=== PATIENT | female | born 1965 | race Caucasian/White ===

== ENCOUNTER → 2018-11-07 12:49 | Outpatient (CLI) | payer OTHER, SELFPAY ==
--- NOTE | 2018-11-07 | ASPS_PTH ---
PATIENT: SERGE NAIR LOC: [facility] U#:[id number] AGE/SX: 60/F ROOM: RE11/07/[address]: Dr. Ken Woodward MD : 1965 BED: DIS: SPEC #: [id number] RECD: 11/07/18 13:28 STATUS: OSEI ELIJAH #: [id number] RITU: 11/07/18 00:[address]: Ken Woodward DEPT: CYTOLOGY RECD BY: Ulises Viera Tissues: Left breast, NOS Procedures: Pap Stain (control) Special Stain Group II Cytology Other HEADER OPERATION: Left breast cyst aspiration PRE-OP DIAGNOSIS: Abnormal mammogram TISSUE SUBMITTED: Left breast tissue 4 slides DIAGNOSIS CYTOLOGY Left breast cyst aspiration, FNA (smears): Consistent with cyst contents. See cytology study and comment. SJ:lori 11/10/18 COMMENT Correlation with clinical, radiologic findings and appropriate follow up are necessary. Rebiopsy is suggested if clinically indicated. CYTOLOGY STUDY Slides are reviewed. The specimen is paucicellular and consists of macrophages and amorphous acellular material. Ductal cells are not identified. CYTOLOGY GROSS Received are four smears labeled with the patient's name and designated per the requisition as left breast. Submitted for staining. 11/07/18 TC:5 CPT: 89032
== END ==
PROVIDERS: Referring Provider Surgery; Visit Provider Surgery
DX: R92.8 Other abnormal and inconclusive findings on diagnostic imaging of breast (principal)
CPT/HCPCS: 88161; 88313

== ENCOUNTER 2022-05-24 09:44 | Outpatient (RCR) | payer OTHER, SELFPAY ==
[2022-05-24 10:17] VITALS: BP 131/81; PULSE 83; RESP 16; TEMP 36.9; BMI 28.6
--- NOTE | 2022-05-24 14:14 | HP.PCM_ITS ---
History of Present Illness Date of Service: 05/24/22 Chief Complaint: Right Leg Wound History of Wound: Ms. Palm is a 56 who presents to the wound center due to non healing right leg wound. Sustained wound about a month ago when she fell on some rocks. Was seen by an Orthopedic PA and Doc. Has been doing Epsom salt socks and some other wound care measures but per patient, she is slowly healing. No history of Diabetes. Smokes occasionally, typically when she drinks. She denies chills, fever or otherwise feeling of unwell. [facility] Medical History (Updated 05/24/22 @ 18:[address] Minerva Queen MD) Tobacco abuse Traumatic open wound of left lower leg with delayed healing Home Medications antiarthritic combination no.2 900 mg tablet (glucosamine-chondroitin) 900 mg PO DAILY 11/05/13 [History Last Taken Unknown] aspirin 81 mg chewable tablet 81 mg PO DAILY@0800 11/05/13 [History Last Taken Unknown] biotin 2,500 mcg capsule 2,500 mcg PO DAILY 11/05/13 [History Last Taken Unknown] cholecalciferol (vitamin D3) 50 mcg (2,000 unit) tablet (Vitamin D3) 2,000 unit PO DAILY 11/05/13 [History Last Taken Unknown] diphenhydramine HCl 25 mg capsule (Banophen) 25 mg PO QHS PRN PRN Sleep 11/05/13 [History Last Taken Unknown] fish oil-dha-epa 1,200 mg-144 mg-216 mg capsule 1 ea PO DAILY 11/05/13 [History Last Taken Unknown] multivitamin with folic acid 400 mcg tablet (Thera) 1 tab PO DAILY 11/05/13 [H istory Last Taken Unknown] atorvastatin 20 mg tablet 20 mg PO QHS 05/24/22 [History Last Taken Unknown] cetirizine 10 mg tablet 10 mg PO DAILY 05/24/22 [History Last Taken Unknown] fluoxetine 10 mg capsule (Prozac) 10 mg PO DAILY 05/24/22 [History Last Taken Unknown] Allergy/AdvReac Type Severity Reaction Status Date / Time No Known Allergies Allergy Verified 05/24/22 10:36 Social History (System 07/16/19 @ 13:08 by Lore Tuttle) Smoking Status: Never smoker ROS Constitutional Constitutional: Denies fatigue, frequent falls, headache(s), increased appetite, lethargy, malaise or night sweats Eyes Eyes: Denies change in eye color, change in vision, decreased night vision, diplopia, discharge from eye(s), discongugate gaze or double vision ENT HEENT: Denies headache(s), hearing loss, mouth pain, mucositis, nasal congestion, nasal discharge, nasal obstruction, nasal trauma or neck pain Cardiovascular Cardiovascular: Denies chest pain at rest, claudication, clubbing, dyspnea at rest, dyspnea on exertion, easily tiring during activity, edema or erythema on extremities Respiratory/Chest Respiratory/Chest: Denies dyspnea, dyspnea on exertion, excessive phlegm production, hemoptysis, hoarseness, inability to speak or nail bed cyanosis Gastrointestinal Gastrointestinal: Denies chewing difficulty, coffee ground emesis, constipation, cramping, diarrhea, dry heaves or dyspepsia Genitourinary Genitourinary: Denies flank pain, genital bruising, genital lesions, genital pain, hematuria, itching or low back pain Musculoskeletal Musculoskeletal: Denies joint stiffness, joint swelling, limited range of motion, loss of height, muscle cramps, muscle spasms or muscle weakness Integumentary Integumentary: Denies erythema, furuncle, hirsutism, jaundice, lesions or nail changes Neurologic Neurologic: Denies burning sensations, confusion, convulsions, disequilibrium, dizziness, focal weakness or frequent falls Psychiatric Psychiatric: Denies cognitive impairment, confusion, depression, difficulty concentrating, hallucinations, mood swings, panic attacks or suicidal thoughts Endocrine Endocrinology: Denies excessive sweating, fatigue, flushing, heat intolerance, increase in ring/shoe/hat size, palpitations, polydipsia or polyphagia Allergic/Immunologic Allergic/Immunologic: Denies tongue swelling, hives, urticaria, eczemia or wheezing Vital Signs Vital Signs Vital Signs: 05/24/22 10:17 Temperature 98.4 F Temperature Source Temporal Pulse Rate 83 Respiratory Rate 16 Blood Pressure 131/81 H Blood Pressure Mean 97 Blood Pressure Source Monitor Blood Pressure Position Sitting Blood Pressure Location Left Arm Oxygen Delivery Method Room Air Weight Weight: 167 lb Body Mass Index (BMI) 28.6 Physical Exam Const alert, oriented x3 and no apparent distress General Appearance: cooperative, comfortable and well kempt HEENT normocephalic and hearing grossly normal bilaterally Head and Scalp: normal to inspection, normocephalic and atraumatic Eyes PERRL and EOMs intact bilaterally Neck full ROM, no lymphadenopathy and supple General: normal visual inspection Resp normal respiratory effort and normal air movement Effort and Inspection: able to speak in complete sentences Cardio regular rate, regular rhythm, S1 normal heart sound and S2 normal heart sound GI soft to palpation, non-tender and non-distended Extremity no clubbing, cyanosis or edema Skin Wounds: wounds noted Neuro oriented x3, CN's II-XII intact bilaterally, moves all extremities and no focal motor deficits Psych mental status grossly normal, thought process normal, cooperative, affect normal and speech normal Debridement Note Debridement Note Wound debrided: Right lower extremity Type of Debridement: Excisional debridement Anesthesia Used: 4% Lidocaine Solution Depth: Down to and including healthy tissue and in the subcutaneous layer Percentage of wound debrided: 100 Instrument Used: 3mm curette Tissue Removed: Slough and devitalized tissue Severity: Fat Layer Exposed Amount of bleeding with debridement: Mild Bleeding Controlled with: Pressure Patient tolerated procedure: Patient tolerated procedure well Post-Debridement Measurements and Additional Note: Post-Debridement Measurements/Treatment - Nurse 1 - General Ulcer Assessment Start: 05/24/22 10:11 Freq: Status: Active Protocol: ERNIE Activity Type Activity Date Activity User E-sign Co-sign Detail Recorded Client Recorded Date Recorded By Document 05/24/22 10:17 [facility] [id number] 05/24/22 10:34 [facility] 05/24/22 10:17 - Today's Visit Information Type of service Initial Visit Arrival Mode Ambulatory Transfer Assistance None Accompanied by SON Patient Identification Verified (Name & Yes ) Patient Requires Transmission-Based No Precautions Height and Weight Height 5 ft 4 in Weight 167 lb Weight in Pounds 167.0 lbs Weight Measurement Method Stated by Patient Body Mass Index (BMI) 28.6 BMI Classification Overweight BSA - Isai 1.81 Vital Signs Temperature (97.8 F-99.1 F) 98.4 F Temperature Source Temporal Pulse Rate (60-100) 83 Pulse Location Monitor Respiratory Rate (12-18) 16 Respiratory rate source Observation Oxygen Delivery Method Room Air Blood Pressure (90/60-120/80) 131/81 H Blood Pressure Mean 97 Source Monitor Position Sitting Blood Pressure Location Left Arm History Since Last Visit- (Skip if this is Patient's initial visit) Left Footwear Regular Shoe Right Footwear Regular Shoe Pain Scale: 0-10 Numeric Is Patient Pain Free? Yes WOUND -Description Dull,Aching -Intensity 2 -Duration (hours) Acute -Pain Behavior No Change in Behavior -Pain Aggravating Factors Sitting -Alleviating Factors/Interventions Turning/ Repositioning, Distraction, Will continue to monitor, Patient denies need for intervention, Emotional Support Lower Extremity Assessment/ Foot Assessment/ Toe Nail Assessment Left -Posterior Tibial Palpable No -Posterior Tibial Doppler Monophasic -Dorsalis Pedis Palpable Yes -Dorsalis Pedis Doppler Monophasic -Extremity Color Normal -Hair Growth on Legs Yes -Hair Growth on Toes Yes -Temperature of Extremity Cool -Capillary Refill Less than 3 Seconds -Other Deformity No -Prior Foot Ulcer No -Charcot Joint No -Prior Amputation No -Thick No -Discolored No -Deformed No -Improper Length & Hygeine No Right -Posterior Tibial Palpable No -Posterior Tibial Doppler Multiphasic -Dorsalis Pedis Palpable Yes -Dorsalis Pedis Doppler Monophasic -Extremity Color Normal -Hair Growth on Legs Yes -Hair Growth on Toes Yes -Temperature of Extremity Cool -Capillary Refill Less than 3 Seconds -Other Deformity No -Prior Foot Ulcer No -Charcot Joint No -Prior Amputation No -Thick No -Discolored No -Deformed No -Improper Length & Hygeine No Communication Assessment Preferred language [place] Water Pumper Required No Able to Read Yes Able to Write Yes Communication Tools None Right Hearing Abillity Normal Left Hearing Abillity Normal Visual Assistive Devices None 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 Cultural/Temple Needs that may affect No Treatment Plan WC - Nurse 1 - General Ulcer Measurement Start: 05/24/22 10:11 Freq: Status: Active Protocol: Activity Type Activity Date Activity User E-sign Co-sign Detail Recorded Client Recorded Date Recorded By Document 05/24/22 10:17 [facility] [id number] 05/24/22 10:34 [facility] 05/24/22 10:17 Wound Center Nurse 1 #1- R ANDERSON (TRAUMA/FALL) -Combined with other wound No -Current Size (cm) - Length 2.4 -Current Size (cm) - Width 0.6 -Current Size (cm) - Depth 0.2 -Total Square Cm 1.44 -Date of Last Picture (Recall this 05/24/22 field) -Photo Taken Yes -Epithelialization None Present -Tunneling No -Undermining/Tunneling No -Circular Undermining No -Exudate Amt Medium -Exudate Type Serosanguineous -Wound Margin Distinct, Outline Attached -Granulation Amt Small (1-33%) -Granulation Quality Red -Slough/Fibrin Yes -Necrosis Amt Medium (34-66%) -Necrotic Tissue Type Adherent Slough -Texture (Hazel-wound Skin Appearance) Assessed, Scarring -Moisture (Hazel-wound Skin Appearance) Assessed -Color (Hazel-wound Skin Appearance) Assessed -Temperature (Hazel-wound Skin No Abnormality Appearance) (Pt Warm) -Tenderness on Palpation (Hazel-wound Yes Skin Appearance) -Ulcer Cleansing Rinsed/ Irrigated with Saline -Foul Odor after Cleansing No -Anesthetic Used 5% Lidocaine Gel Lower Limb Edema Present Yes Right Calf (cm) 39.7 Right Ankle (cm) 22.6 WC - Nurse 2 - General Ulcer CM Notes Start: 05/24/22 10:11 Freq: Status: Active Protocol: Activity Type Activity Date Activity User E-sign Co-sign Detail Recorded Client Recorded Date Recorded By Document 05/24/22 10:54 MW [id number] 05/24/22 10:59 MW 05/24/22 10:54 Wound Center Nurse 2 #1- R ANDERSON (TRAUMA/FALL) -Time 10:54 -Correct Patient Yes -Correct Side, Site, Position Yes -Correct Procedure Yes -Procedure Performed Yes -Type of Procedure Debridement -Clinical Debridement Subcutaneous -Tissue Removed Subcutaneous -Post Debridement (cm) - Length 2.5 -Post Debridement (cm) - Width 0.6 -Post Debridement (cm) - Depth 0.2 -Total Square (Post) (cm) 1.50 -Area of Debridement (cm) - Length 2.5 -Area of Debridement (cm) - Width 0.6 -Total Square (Area) (cm) 1.50 -Tunneling No -Undermining/Tunneling No -Circular Undermining No -Wound/Ulcer Outcome Not Healed -Ulcer Cleansing Rinsed/ Irrigated with Saline -Foul Odor after Cleansing No -Bioengineered Tissue No -Bleeding Controlled with Pressure -Treatment Response Procedure Tolerated Well -Offloading No -Debridement - Subq, 1st 20sq cm Yes Pain Scale: 0-10 Numeric Is Patient Pain Free? Yes WC - Nurse 3 - General Ulcer D/C NN Start: 05/24/22 10:11 Freq: Status: Active Protocol: Activity Type Activity Date Activity User E-sign Co-sign Detail Recorded Client Recorded Date Recorded By Document 05/24/22 11:06 DL [id number] 05/24/22 11:22 DL 05/24/22 11:06 Wound Care Nurse 3 #1- R ANDERSON (TRAUMA/FALL) -Ulcer Cleansing Rinsed/ Irrigated with Saline -Primary Dressing Applied NonAdherent Contact Layer, Promogran -Primary Dressing Covered/Secured with Dry Gauze, Secured with Tape -Promogran 1 Right -Tubular Bandage Double Layer -Size of Tubigrip Used Size D -Size D ($) 2 Treatment Response Procedure Tolerated Well Pain Scale: 0-10 Numeric Is Patient Pain Free? Yes WC - Visit Discharge Discharge Condition Stable Ambulatory Status Ambulatory Transportation Private Auto Charges/Coding Visit Charges Office Visits / Consults: [id number] OV L3 New Procedures Integumentary 111xxx-113xx: 39915 Skylar subq tissue 20 sq cm/< Assessment/Plan Assessment/Plan (1) Traumatic open wound of left lower leg with delayed healing: CODE(S): S81.802D - Unspecified open wound, left lower leg, subsequent encounter (2) Tobacco abuse: CODE(S): Z72.0 - Tobacco use PLAN: Plan Debridement done as documented above, procedure was well-tolerated. Compared to pictures shown of initial injury, there has been some improvement. Promogran daily with Adaptic over top. Double layer Tubigrip for edema management. Warm compresses to the area of hematoma. Elevate lower extremities, increase protein intake, vitamin C D and zinc discussed/recommended. Smoking cessation also recommended. Patient voiced understanding. Her questions were answered and she was advised to call with any further questions or concerns. Follow-up in 2 weeks or sooner if needed. This note was generated with [employer] dictation software. It may contain incorrect words, spelling, and punctuation that were not noted in checking the note before signing.
== END 2022-05-31 23:59 | disposition home or self-care (01) ==
LOC: WC 09:44
PROVIDERS: PCP Family Medicine; Visit Provider Internal Medicine
DX: S81.832A Puncture wound without foreign body, left lower leg, initial encounter (principal); Z79.82 Long term (current) use of aspirin; F17.200 Nicotine dependence, unspecified, uncomplicated; Z79.899 Other long term (current) drug therapy; W19.XXXA Unspecified fall, initial encounter
CPT/HCPCS: 11042; 99213; G0463

== ENCOUNTER 2022-06-21 10:30 | Outpatient (RCR) | payer OTHER, SELFPAY ==
[2022-06-01 00:51] VITALS: BP 131/81; PULSE 83; RESP 16; TEMP 36.9; BMI 28.6
[2022-06-07 11:05] VITALS: BP 139/91; PULSE 75; RESP 18; TEMP 36.1; BMI 28.6
--- NOTE | 2022-06-07 13:35 | PN.PCM_ITS ---
History of Present Illness Date of Service: 06/07/22 Chief Complaint: Right Leg Wound History of Wound: Ms. Palm is a 56 who presents to the wound center due to non healing right leg wound. Sustained wound about a month ago when she fell on some rocks. Was seen by an Orthopedic PA and Doc. Has been doing Epsom salt socks and some other wound care measures but per patient, she is slowly healing. No history of Diabetes. Smokes occasionally, typically when she drinks. She denies chills, fever or otherwise feeling of unwell. Progress of Wound: Improving. No new concerns at this time. Objective Data Objective Data Vital Signs: Vital Signs Temp Pulse Resp BP O2 Del Method 97 F L 75 18 139/91 H Room Air 06/07/22 11:05 06/07/22 11:05 06/07/22 11:05 06/07/22 11:05 06/07/22 11:05 Oxygen Delivery Method Room Air Weight: 167 lb Body Mass Index (BMI) 28.6 Charges/Coding Procedures Integumentary 111xxx-113xx: 34390 Skylar subq tissue 20 sq cm/< Physical Exam Const alert, oriented x3 and no apparent distress General Appearance: cooperative, comfortable and well kempt HEENT normocephalic and hearing grossly normal bilaterally Head and Scalp: normal to inspection, normocephalic and atraumatic Eyes PERRL and EOMs intact bilaterally Neck full ROM, no lymphadenopathy and supple General: normal visual inspection Resp normal respiratory effort Effort and Inspection: able to speak in complete sentences Extremity no clubbing, cyanosis or edema Skin Wounds: wounds noted Neuro oriented x3, CN's II-XII intact bilaterally, moves all extremities and no focal motor deficits Psych mental status grossly normal, thought process normal, cooperative, affect normal and speech normal Debridement Note Debridement Note Wound debrided: Right lower extremity Type of Debridement: Excisional debridement Anesthesia Used: 4% Lidocaine Solution Depth: Down to and including healthy tissue and in the subcutaneous layer Percentage of wound debrided: 100 Instrument Used: - (1mm) Tissue Removed: Slough and devitalized tissue Severity: Fat Layer Exposed Amount of bleeding with debridement: Mild Bleeding Controlled with: Pressure Patient tolerated procedure: Patient tolerated procedure well Post-Debridement Measurements and Additional Note: Post-Debridement Measurements/Treatment WC - Nurse 1 - General Ulcer Assessment Start: 06/07/22 11:04 Freq: Status: Active Protocol: HENRY.[email or web address] Activity Type Activity Date Activity User E-sign Co-sign Detail Recorded Client Recorded Date Recorded By Document 06/07/22 11:05 MI [id number] 06/07/22 11:10 MI 06/07/22 11:05 - Today's Visit Information Type of service 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 ) Arrival Mode Ambulatory Accompanied by self Patient Identification Verified (Name & Yes ) Height and Weight Body Mass Index (BMI) 28.6 BMI Classification Overweight Vital Signs Temperature (97.8 F-99.1 F) 97 F L Temperature Source Temporal Pulse Rate (60-100) 75 Pulse Location Monitor Respiratory Rate (12-18) 18 Respiratory rate source Observation Oxygen Delivery Method Room Air Blood Pressure (90/60-120/80) 139/91 H Blood Pressure Mean (mm Hg) 107 Source Monitor Position Sitting Blood Pressure Location Left Arm History Since Last Visit- (Skip if this is Patient's initial visit) Has dressing in place as prescribed Yes Has compression in place as prescribed Yes Has offloadiing in place as prescribed Yes Experienced any changes in pain level or Yes management Left Footwear Regular Shoe Right Footwear Regular Shoe Pain Scale: 0-10 Numeric Is Patient Pain Free? Yes - Nurse 1 - General Ulcer Measurement Start: 06/07/22 11:04 Freq: Status: Active Protocol: Activity Type Activity Date Activity User E-sign Co-sign Detail Recorded Client Recorded Date Recorded By Document 06/07/22 11:05 MI [id number] 06/07/22 11:10 MI 06/07/22 11:05 Wound Center Nurse 1 #1- R ANDERSON (TRAUMA/FALL) -Current Size (cm) - Length 0.5 -Current Size (cm) - Width 0.5 -Current Size (cm) - Depth 0.5 -Total Square Cm 0.25 -Epithelialization Large 67-100% -Exudate Amt Small -Wound Margin Flat & Intact -Granulation Amt Small (1-33%) -Granulation Quality Pale,[place] -Texture (Hazel-wound Skin Appearance) Assessed,Callus -Moisture (Hazel-wound Skin Appearance) Assessed -Color (Hazel-wound Skin Appearance) Assessed -Temperature (Hazel-wound Skin No Abnormality Appearance) (Pt Warm) -Tenderness on Palpation (Hazel-wound No Skin Appearance) -Ulcer Cleansing Rinsed/ Irrigated with Saline -Foul Odor after Cleansing No -Anesthetic Used 4% Lidocaine Solution Lower Limb Edema Present Yes Right Calf (cm) 39.7 Right Ankle (cm) 22.6 WC - Nurse 2 - General Ulcer CM Notes Start: 06/07/22 11:04 Freq: Status: Active Protocol: Activity Type Activity Date Activity User E-sign Co-sign Detail Recorded Client Recorded Date Recorded By Document 06/07/22 11:19 MW [id number] 06/07/22 11:22 MW 06/07/22 11:19 Wound Center Nurse 2 #1- R ANDERSON (TRAUMA/FALL) -Time 11:19 -Correct Patient Yes -Correct Side, Site, Position Yes -Correct Procedure Yes -Procedure Performed Yes -Type of Procedure Debridement -Clinical Debridement Subcutaneous -Tissue Removed Subcutaneous -Post Debridement (cm) - Length 0.9 -Post Debridement (cm) - Width 0.2 -Post Debridement (cm) - Depth 0.1 -Total Square (Post) (cm) 0.18 -Area of Debridement (cm) - Length 0.9 -Area of Debridement (cm) - Width 0.2 -Total Square (Area) (cm) 0.18 -Tunneling No -Undermining/Tunneling No -Circular Undermining No -Wound/Ulcer Outcome Not Healed -Bioengineered Tissue No -Bleeding Controlled with Pressure -Treatment Response Procedure Tolerated Well -Offloading No -Debridement - Subq, 1st 20sq cm Yes Pain Scale: 0-10 Numeric Is Patient Pain Free? Yes - Nurse 3 - General Ulcer D/C NN Start: 06/07/22 11:04 Freq: Status: Active Protocol: Activity Type Activity Date Activity User E-sign Co-sign Detail Recorded Client Recorded Date Recorded By Document 06/07/22 11:40 MT [id number] 06/07/22 11:45 MT Edit Result 06/07/22 11:40 MT (1) [id number] 06/07/22 11:56 MT (1) Notes: => pt requested size C. 06/07/22 11:40 Wound Care Nurse 3 #1- R ANDERSON (TRAUMA/FALL) -Ulcer Cleansing Rinsed/ Irrigated with Saline -Primary Dressing Applied Promogran -Other Dressing promogran, adaptic -Primary Dressing Covered/Secured with Secured with Tape -Promogran 1 Right -Tubular Bandage Double Layer -Size of Tubigrip Used Size C -Size C ($) 2 Pain Scale: 0-10 Numeric Is Patient Pain Free? Yes WC - Visit Discharge Discharge Condition Stable Ambulatory Status Ambulatory Transportation Private Auto Medication Reconcilliation completed & No provided to patient/care provider Clinical Summary of Care Provided Yes Notes: pt requested size C. Assessment/Plan Assessment/Plan (1) Traumatic open wound of right lower leg with delayed healing: CODE(S): S81.801D - Unspecified open wound, right lower leg, subsequent encounter (2) Tobacco abuse: CODE(S): Z72.0 - Tobacco use PLAN: Plan Improving. Debridement done as documented above, procedure was well-tolerated. Continue Promogran daily with Adaptic over top. Double layer Tubigrip for edema management. Leg elevation and exercise as tolerated. Continue warm compresses to the area of hematoma. Optimal protein intake. Her questions were answered and she was advised to call with any further questions or concerns. Follow-up in 2 weeks due to patient preference. This note was generated with [employer] dictation software. It may contain incorrect words, spelling, and punctuation that were not noted in checking the note before signing.
[2022-06-21 11:13] VITALS: BP 123/82; PULSE 68; RESP 16; TEMP 35.8; BMI 28.6
--- NOTE | 2022-06-21 11:44 | PCM.WC.PN ---
History of Present Illness Date of Service: 06/21/22 Chief Complaint: Right Leg Wound History of Wound: Ms. Palm is a 56 who presents to the wound center due to non healing right leg wound. Sustained wound about a month ago when she fell on some rocks. Was seen by an Orthopedic PA and Doc. Has been doing Epsom salt socks and some other wound care measures but per patient, she is slowly healing. No history of Diabetes. Smokes occasionally, typically when she drinks. She denies chills, fever or otherwise feeling of unwell. Progress of Wound: Healed. No new concerns at this time. Objective Data Objective Data Vital Signs: Vital Signs Temp Pulse Resp BP O2 Del Method 96.5 F L 68 16 123/82 H Room Air 06/21/22 11:13 06/21/22 11:13 06/21/22 11:13 06/21/22 11:13 06/21/22 11:13 Oxygen Delivery Method Room Air Weight: 167 lb Body Mass Index (BMI) 28.6 Charges/Coding Visit Charges Office Visits / Consults: 52171 OV L3 Est Physical Exam Const alert, oriented x3 and no apparent distress General Appearance: cooperative, comfortable and well kempt HEENT normocephalic and hearing grossly normal bilaterally Head and Scalp: normal to inspection, normocephalic and atraumatic Eyes PERRL and EOMs intact bilaterally Neck full ROM, no lymphadenopathy and supple General: normal visual inspection Resp normal respiratory effort Effort and Inspection: able to speak in complete sentences Extremity no clubbing, cyanosis or edema Neuro oriented x3, CN's II-XII intact bilaterally, moves all extremities and no focal motor deficits Psych mental status grossly normal, thought process normal, cooperative, affect normal and speech normal Debridement Note Debridement Note Post-Debridement Measurements and Additional Note: Post-Debridement Measurements/Treatment HENRY - Nurse 1 - General Ulcer Assessment Start: 06/07/22 11:04 Freq: Status: Active Protocol: ERNIE Activity Type Activity Date Activity User E-sign Co-sign Detail Recorded Client Recorded Date Recorded By Document 06/07/22 11:05 DC [id number] 06/07/22 11:10 DC Document 06/21/22 11:13 [facility] [id number] 06/21/22 11:16 BMF 06/07/22 06/21/22 11:05 11:13 - Today's Visit Information Type of service Follow-up Visit Follow-up Visit (Physician/DOG RAISER (Physician/DOG RAISER ) ) Arrival Mode Ambulatory Ambulatory Transfer Assistance None Accompanied by self Patient Identification Verified (Name & Yes Yes ) Patient Requires Transmission-Based No Precautions Height and Weight Body Mass Index (BMI) 28.6 28.6 BMI Classification Overweight Overweight Vital Signs Temperature (97.8 F-99.1 F) 97 F L 96.5 F L Temperature Source Temporal Temporal Pulse Rate (60-100) 75 68 Pulse Location Monitor Monitor Respiratory Rate (12-18) 18 16 Respiratory rate source Observation Observation Oxygen Delivery Method Room Air Room Air Blood Pressure (90/60-120/80) 139/91 H 123/82 H Blood Pressure Mean (mm Hg) 107 95 Source Monitor Monitor Position Sitting Sitting Blood Pressure Location Left Arm Left Arm History Since Last Visit- (Skip if this is Patient's initial visit) Have you changed medications since your No last visit? Any new allergies or adverse reactions No Had a fall/change in ADL's that may No increase risk of falls Signs or symptoms of abuse and/or No neglect since last visit Have you been in the hospital since your No last visit? Has dressing in place as prescribed Yes No Has compression in place as prescribed Yes No Has offloadiing in place as prescribed Yes Experienced any changes in pain level or Yes No management Left Footwear Regular Shoe Regular Shoe Right Footwear Regular Shoe Regular Shoe Pain Scale: 0-10 Numeric Is Patient Pain Free? Yes No - Nurse 1 - General Ulcer Measurement Start: 06/07/22 11:04 Freq: Status: Active Protocol: Activity Type Activity Date Activity User E-sign Co-sign Detail Recorded Client Recorded Date Recorded By Document 06/07/22 11:05 DC [id number] 06/07/22 11:10 DC Document 06/21/22 11:13 [facility] [id number] 06/21/22 11:16 [facility] 06/07/22 06/21/22 11:05 11:13 Wound Center Nurse 1 #1- R ANDERSON (TRAUMA/FALL) -Combined with other wound No -Current Size (cm) - Length 0.5 0 -Current Size (cm) - Width 0.5 0 -Current Size (cm) - Depth 0.5 0 -Total Square Cm 0.25 0 -Date of Last Picture (Recall this 06/21/22 field) -Photo Taken Yes -Epithelialization Large 67-100% Large 67-100% -Exudate Amt Small -Wound Margin Flat & Intact -Granulation Amt Small (1-33%) -Granulation Quality Pale,[place] -Texture (Hazel-wound Skin Appearance) Assessed,Callus Assessed, Scarring -Moisture (Hazel-wound Skin Appearance) Assessed Assessed -Color (Hazel-wound Skin Appearance) Assessed Not Assessed -Temperature (Hazel-wound Skin No Abnormality No Abnormality Appearance) (Pt Warm) (Pt Warm) -Tenderness on Palpation (Hazel-wound No No Skin Appearance) -Ulcer Cleansing Rinsed/ Irrigated with Saline -Foul Odor after Cleansing No -Anesthetic Used 4% Lidocaine Solution Lower Limb Edema Present Yes Right Calf (cm) 39.7 Right Ankle (cm) 22.6 WC - Nurse 2 - General Ulcer CM Notes Start: 06/07/22 11:04 Freq: Status: Active Protocol: Activity Type Activity Date Activity User E-sign Co-sign Detail Recorded Client Recorded Date Recorded By Document 06/07/22 11:19 MW [id number] 06/07/22 11:22 MW Document 06/21/22 11:19 MW [id number] 06/21/22 11:20 MW 06/07/22 06/21/22 11:19 11:19 Wound Center Nurse 2 #1- R ANDERSON (TRAUMA/FALL) -Time 11:19 11:19 -Correct Patient Yes Yes -Correct Side, Site, Position Yes Yes -Correct Procedure Yes Yes -Procedure Performed Yes No -Type of Procedure Debridement -Clinical Debridement Subcutaneous -Tissue Removed Subcutaneous -Post Debridement (cm) - Length 0.9 0 -Post Debridement (cm) - Width 0.2 0 -Post Debridement (cm) - Depth 0.1 0 -Total Square (Post) (cm) 0.18 0 -Area of Debridement (cm) - Length 0.9 -Area of Debridement (cm) - Width 0.2 -Total Square (Area) (cm) 0.18 -Tunneling No -Undermining/Tunneling No -Circular Undermining No -Wound/Ulcer Outcome Not Healed Healed- Epithelialized -Bioengineered Tissue No -Bleeding Controlled with Pressure -Treatment Response Procedure Tolerated Well -Offloading No -Debridement - Subq, 1st 20sq cm Yes Pain Scale: 0-10 Numeric Is Patient Pain Free? Yes Yes WC - Nurse 3 - General Ulcer D/C NN Start: 06/07/22 11:04 Freq: Status: Active Protocol: Activity Type Activity Date Activity User E-sign Co-sign Detail Recorded Client Recorded Date Recorded By Document 06/07/22 11:40 MT [id number] 06/07/22 11:45 MT Edit Result 06/07/22 11:40 MT (1) [id number] 06/07/22 11:56 MT Document 06/21/22 11:20 MW [id number] 06/21/22 11:20 MW (1) Notes: => pt requested size C. 06/07/22 06/21/22 11:40 11:20 Wound Care Nurse 3 #1- R ANDERSON (TRAUMA/FALL) -Ulcer Cleansing Rinsed/ Irrigated with Saline -Primary Dressing Applied Promogran -Other Dressing promogran, adaptic -Primary Dressing Covered/Secured with Secured with Tape -Promogran 1 Right -Tubular Bandage Double Layer -Size of Tubigrip Used Size C -Size C ($) 2 Treatment Response Procedure Tolerated Well Pain Scale: 0-10 Numeric Is Patient Pain Free? Yes Yes Teaching: Wound Center Discharge Instructions -Person Taught Patient -Teaching Method Discussion -Response to teaching Verbalize understanding WC - Visit Discharge Discharge Condition Stable Stable Ambulatory Status Ambulatory Ambulatory Transportation Private Auto Private Auto Accompanied by SELF Medication Reconcilliation completed & No No provided to patient/care provider Clinical Summary of Care Provided Yes Yes Notes: pt requested size C. Assessment/Plan Assessment/Plan (1) Traumatic open wound of right lower leg with delayed healing: CODE(S): S81.801D - Unspecified open wound, right lower leg, subsequent encounter (2) Tobacco abuse: CODE(S): Z72.0 - Tobacco use PLAN: Plan Healed. No new concerns at this time. Keep area protected. Continue double layer Tubigrip for compression for at least a month especially during prolonged standing. Continue warm compresses to the area of hematoma. Optimal protein intake. Her questions were answered and she was advised to call with any further questions or concerns. Discharge from the wound center. This note was generated with [employer] software. It may contain incorrect words, spelling, and punctuation that were not noted in checking the note before signing.
== END 2022-06-21 15:40 | disposition home or self-care (01) ==
LOC: WC 10:30
PROVIDERS: PCP Family Medicine; Visit Provider Internal Medicine
DX: S81.831A Puncture wound without foreign body, right lower leg, initial encounter (principal); W19.XXXA Unspecified fall, initial encounter; F17.200 Nicotine dependence, unspecified, uncomplicated
CPT/HCPCS: 11042; 99213; G0463

== ENCOUNTER → 2024-12-16 | Outpatient (CLI) | payer OTHER, SELFPAY ==
--- NOTE | 2024-12-16 16:24 | CT_ITS ---
STUDY: CT MAXILLOFACIAL SINUSES REASON FOR EXAM: Female, 59 years old. CHRONIC SINUSITIS RADIATION DOSAGE (If Supplied By Facility): CTDIvol = ( 33.06 ) mGy, DLP = ( 821.45 ) mGycm TECHNIQUE: The patient was scanned in a multi detector CT scanner. High resolution axial imaging was performed without the administration of intravenous contrast material. Sagittal and coronal images were reconstructed. Individualized dose optimization techniques were used for this CT. COMPARISON: None. FINDINGS: FRONTAL SINUSES: Normal aeration, without mucosal inflammatory disease. ETHMOIDAL SINUSES: Partial opacification of the ethmoid sinuses. MAXILLARY SINUSES: Nodular mucosal thickening of the left maxillary sinus. SPHENOIDAL SINUSES: Normal aeration, without mucosal inflammatory disease. There is patency of the bilateral maxillary infundibuli with normal uncinate processes, ethmoid bullae, and hiatus semilunaris. Normal bilateral middle turbinates. Normal bilateral inferior turbinates. There is a left sided nasal septal deviation, but without a nasal septal spur. There is patency of the bilateral nasal airways. The visualized osseous structures are normal. The visualized bilateral orbital contents are normal. CT/Sinus/Facial Bone IMPRESSION: Nodular mucosal thickening of the left maxillary sinus and partial opacification of the sphenoid sinus. Electronically Signed: Gil Ramirez MD at 9:45 EST ,
== END | disposition home or self-care (01) ==
PROVIDERS: PCP Family Medicine; Referring Provider Otolaryngology; Visit Provider Otolaryngology
DX: J32.9 Chronic sinusitis, unspecified (principal)
CPT/HCPCS: 70486

== ENCOUNTER → 2025-09-22 | Outpatient (CLI) | payer OTHER, SELFPAY | END | disposition home or self-care (01) | PROVIDERS: PCP Family Medicine; Referring Provider Otolaryngology Otolaryngology/Facial Plastic Surgery; Visit Provider Otolaryngology Otolaryngology/Facial Plastic Surgery | DX: J32.8 Other chronic sinusitis (principal) | CPT/HCPCS: 87070; 87205 ==